=== PATIENT | female | born 1955 | race Caucasian/White ===

== ENCOUNTER 2017-09-24 10:59 | Emergency (ER) | payer SELFPAY ==
--- NOTE | 2017-09-24 11:20 | ER Document Report ---
ED Medical Screen (RME) - General Chief Complaint: Dizziness Stated Complaint: DIZZINESS Time Seen by Provider: 09/24/17 11:11 Mode of Arrival: Ambulatory Information source: Patient Notes: This is a 61-year-old female with a history of hypertension who presents to the emergency room with intermittent weakness and dizziness for the past 2 weeks. Patient did have a history of a fall 1 week ago and did have an outpatient CT scan which was negative. She has had intermittent vertigo symptoms since that period of time. She is a longtime smoker 1 pack per day since the age of 17 TRAVEL OUTSIDE OF THE [place] IN LAST 30 DAYS: No - HPI Onset: Last week Onset/Duration: Gradual Quality of pain: No pain Severity: None Pain Level: Denies Associated Symptoms: Dizzy/lightheaded, Other - Vertigo. denies: Chest pain, Headache, Sinus pain/drainage Exacerbated by: Walking Relieved by: Denies Similar symptoms previously: Yes Recently seen / treated by doctor: Yes - Related Data Smoking: Cigarettes Frequency of alcohol use: Occasional Drug Abuse: None Allergies/Adverse Reactions: No Known Allergies Allergy (Unverified 09/24/17 11:01) Past Medical History - General Information source: Patient - Social History Cigarette use (# per day): Yes - 1-1/2 packs per day Chew tobacco use (# tins/day): No Frequency of alcohol use: None Drug Abuse: Bath salts Lives with: Family Family history: None - Past Medical History Cardiac Medical History: Reports: Hx Hypertension Pulmonary Medical History: Reports: Hx COPD Neurological Medical History: Reports: None Endocrine Medical History: Reports: None Renal/ Medical History: Denies: Hx Peritoneal Dialysis Malignancy Medical History: Reports: None Surgical Hx: Negative Review of Systems - Review of Systems Notes: Review of systems: Constitutional: Denies fever, chills. EENT: Denies ear pain, sinus tenderness, throat pain, throat swelling. Cardiovascular: Denies chest pain, palpitations, dyspnea or edema. Respiratory: Denies wheezing, cough, hemoptysis. Abdomen: Denies abdominal pain, nausea, vomiting, diarrhea. Denies BRBPR or melena. Genitourinary: Denies dysuria, pyuria, hematuria, flank pain. Musculoskeletal: denies joint pain or swelling, denies back pain. Neurologic: See H&P Skin: Denies rash, lesions. Physical Exam - Vital signs Vitals: Temp Pulse Resp BP Pulse Ox 98.4 F 69 16 143/64 H 95 09/24/17 11:06 09/24/17 11:06 09/24/17 11:06 09/24/17 11:06 09/24/17 11:06 Notes: Physical exam: GENERAL: 61-year-old female, alert and oriented 3, no acute distress HEAD: Atraumatic, normocephalic. EYES: Pupils equal round and reactive to light, extraocular movements intact, sclera anicteric, conjunctiva are normal. ENT: TMs normal, nares patent, oropharynx clear without exudates. Moist mucous membranes. NECK: Normal range of motion, supple without obvious mass or JVD. LUNGS: Breath sounds clear to auscultation bilaterally and equal. No wheezes rales or rhonchi. HEART: Regular rate and rhythm without murmurs, rubs or gallops. ABDOMEN: Soft, normoactive bowel sounds. No tenderness to palpation. No guarding, no rebound. No masses appreciated. EXTREMITIES: Normal range of motion, no pitting or edema. No clubbing or cyanosis. NEUROLOGICAL: Cranial nerves II through XII grossly intact. Motor 5/5, sensory grossly intact, cerebellar (finger to nose) good, visual phillips intact in all 4 quadrants, normal sensory bilaterally, normal speech, reflexes symmetrical, Romberg negative. PSYCH: Normal mood, normal affect. SKIN: Warm, Dry, normal turgor, no rashes or lesions noted. Course - Re-evaluation Re-evalutation: 09/24/17 16:08 Note: I had a long discussion with the patient and her sister at the bedside. Patient does have evidence of old strokes. There is nothing acute. I believe that her vertigo is most likely peripheral based upon the MRI findings and her physical exam. However, I did discuss with her the importance of stopping smoking. Additionally, given the MRI, I will put her on a daily aspirin as well as simvastatin. I will refer her to a neurologist and she has asked for a referral to a different primary care doctors which I will provide her with. At the time of discharge, I have instructed the patient at the bedside with regards to return precautions and follow-up recommendations. The opportunity for questions was given. The patient has verbalized understanding of these instructions and the need for follow-up. - Vital Signs Vital signs: Temp Pulse Resp BP Pulse Ox 99.1 F 69 23 H 157/92 H 99 09/24/17 14:37 09/24/17 11:06 09/24/17 14:33 09/24/17 14:33 09/24/17 14:33 - Laboratory Result Diagrams: 09/24/17 11:30 09/24/17 11:30 Laboratory results interpreted by me: 09/24/17 09/24/17 11:30 11:30 RBC 5.38 H Hgb 16.3 H Hct 48.3 H Monocytes % 13.3 H Sodium 134.4 L Chloride 96 L AST 44 H - Diagnostic Test Radiology reviewed: Image reviewed, Reports reviewed - MRI does show evidence of old strokes. Doctor's Discharge - Discharge Clinical Impression: Vertigo Condition: Stable Disposition: HOME, SELF-CARE Instructions: Antinausea Medication ([facility]), Dizziness ([facility]), Meclizine ([facility]), Vertigo ([facility]) Additional Instructions: As we discussed, the MRI does show some very small strokes which are old. I do not believe these are the cause of your vertigo symptoms. MRI was otherwise okay. The chest x-ray showed evidence of emphysema which is not surprising given the amount of your smoking history. The smoking as well as the blood pressure put you at risk of further strokes. I would like you to start taking the simvastatin, baby aspirin a day. I would like you to follow-up with a neurologist: I left the number for one on the chart. I would also like you to follow-up with primary care doctor: Primary Care Doctor's affiliated with [facility]: If you do not have a primary care doctor or you are unable to get an appointment during that time, you can try one of the doctor's below. These are internal medicine doctor's that have admitting priveledges to the hospital ( they will see you both in the office as well as in this hospital if you are ever hospitalized here). Dr. Penny Sousa [address], [place] [address] [phone] Dr Nguyen Address: [address] [place] [address] Dr Griffin Address: [address] [place] [address] Thank you for choosing [facility] for your care. The examination and treatment you have received in the Emergency Department today has been rendered on an emergency basis only and is not intended to be a substitute for complete medical care. You should contact your doctor as it is important that she/he examine you for any new or remaining problems. If given a copy of any lab tests or radiology reports, please bring them with you when you see your physician. If your problem worsens or new symptoms appear and you are unable to arrange prompt follow-up care, return to the Emergency Department. Specific signs to look out for: Worsening dizziness, headache or any concerns or getting worse. Prescriptions: Meclizine HCl 25 mg PO Q8HP PRN #14 tab.chew PRN Reason: Aspirin [Aspirin 81 mg Chewable Tablet] 81 mg PO DAILY #30 tab.chew Simvastatin 10 mg PO DAILY #30 tablet Referrals: ULYSSES BROWN MD [Primary Care Provider] - Follow up as needed TIARRA WYATT MD [ACTIVE STAFF] - Follow up as needed (This is the number for the neurologist: Call for an appointment)
--- NOTE | 2017-09-24 12:04 | RADIOLOGY REPORT (SQ) ---
EXAM DESCRIPTION: CHEST PA/LAT COMPLETED DATE/TIME: 09/24/2017 11:37 am REASON FOR STUDY: weakness COMPARISON: None. EXAM PARAMETERS: NUMBER OF VIEWS: two views TECHNIQUE: Digital Frontal and Lateral radiographic views of the chest acquired. RADIATION DOSE: NA LIMITATIONS: none FINDINGS: LUNGS AND PLEURA: No opacities, masses or pneumothorax. No pleural effusion. MEDIASTINUM AND HILAR STRUCTURES: No masses or contour abnormalities. HEART AND VASCULAR STRUCTURES: Heart normal size. No evidence for failure. BONES: No acute findings. HARDWARE: None in the chest. OTHER: No other significant finding. IMPRESSION: NO SIGNIFICANT RADIOGRAPHIC FINDING IN THE CHEST. TECHNICAL DOCUMENTATION: JOB ID: [id number] [employer]- All Rights Reserved
[2017-09-24 12:06] LABS: ABSOLUTE LYMPHOCYTES (AUTO) 0.8 10^3/uL (0.5-4.7); ABSOLUTE MONOCYTES (AUTO) 0.5 10^3/uL (0.1-1.4); ABSOLUTE NEUT (AUTO) 2.8 10^3/uL (1.7-8.2); BASOPHILS % (AUTO) 0.7 % (0-2); EOSINOPHILS % (AUTO) 0.6 % (0-6); HEMATOCRIT 48.3 % (36.0-47.0); HEMOGLOBIN 16.3 g/dL (12.0-15.5); LYMPHOCYTES % (AUTO) 18.4 % (13-45); MEAN CORPUSCULAR HEMOGLOBIN 30.3 pg (27.0-33.4); MEAN CORPUSCULAR HGB CONC 33.8 g/dL (32.0-36.0); MEAN CORPUSCULAR VOLUME 90 fl (80-97); MONOCYTES % (AUTO) 13.3 % (3-13); PLATELET COUNT 177 10^3/uL (150-450); RED BLOOD COUNT 5.38 10^6/uL (3.72-5.28); RED CELL DISTRIBUTION WIDTH 12.9 % (11.5-14.0); TOTAL CELLS COUNTED % (AUTO) 100 %; WHITE BLOOD COUNT 4.1 10^3/uL (4.0-10.5)
[2017-09-24 12:21] LABS: ALANINE AMINOTRANSFERASE 20 U/L (9-52); ALBUMIN 4.8 g/dL (3.5-5.0); ALKALINE PHOSPHATASE 97 U/L (38-126); ANION GAP 10 (5-19); ASPARTATE AMINO TRANSFERASE 44 U/L (14-36); BILIRUBIN,DIRECT 0.4 mg/dL (0.0-0.4); BILIRUBIN,TOTAL 0.4 mg/dL (0.2-1.3); BLOOD UREA NITROGEN 9 mg/dL (7-20); CALCIUM 9.8 mg/dL (8.4-10.2); CARBON DIOXIDE 28 mmol/L (22-30); CHLORIDE 96 mmol/L (98-107); CREATINE KINASE 58 U/L (30-135); GLUCOSE 98 mg/dL (75-110); MAGNESIUM 1.9 mg/dL (1.6-2.3); POTASSIUM 4.3 mmol/L (3.6-5.0); SODIUM 134.4 mmol/L (137-145); TOTAL PROTEIN 7.6 g/dL (6.3-8.2)
--- NOTE | 2017-09-24 12:29 | RADIOLOGY REPORT (SQ) ---
EXAM DESCRIPTION: MRI HEAD WITHOUT COMPLETED DATE/TIME: 09/24/2017 12:18 pm REASON FOR STUDY: vertigo COMPARISON: None. TECHNIQUE: Multiplanar imaging includes non-contrasted T1, T2, FLAIR, and diffusion with ADC map seq uences. Images stored on PACS. LIMITATIONS: None. FINDINGS: ANATOMY: No anomalies. Normal vascular flow voids. Pituitary fossa normal. CSF SPACES: Normal in size and contour. No hemorrhage. CEREBRUM: Sulci and gyri normal in size and contour. Old watershed infarcts left frontal and right p arietal low. No evidence of hemorrhage, mass, or extraaxial fluid collection. POSTERIOR FOSSA: No signal alteration. No hemorrhage. No edema, masses or mass effect. Internal arron tory canals, cerebello-pontine angles, mastoids normal. DIFFUSION IMAGING: Negative for acute or sub-acute infarction. ORBITS: No masses. Globes normal. PARANASAL SINUSES: No fluid levels. Mucosa normal. OTHER: No other significant finding. IMPRESSION: Old infarcts. No acute findings. EVIDENCE OF ACUTE STROKE: NO. TECHNICAL DOCUMENTATION: JOB ID: [id number] [employer]- All Rights Reserved
[2017-09-24 12:32] LABS: CREATINE KINASE MB 0.46 ng/mL (<4.55)
[2017-09-24 12:34] LABS: TROPONIN I < 0.012 ng/mL
[2017-09-24 13:15] LABS: FREE T3 3.2 pg/mL (2.77-5.27); FREE T4 (FREE THYROXINE) 1.01 ng/dL (0.78-2.19)
[2017-09-24 13:28] LABS: THYROID STIMULATING HORMONE 4.04 uIU/mL (0.47-4.68)
[2017-09-24 14:36] VITALS: BP 157/92
== END 2017-09-24 14:36 | disposition home or self-care (01) ==
LOC: ER 10:59
DX: R42 Dizziness and giddiness (principal); R53.1 Weakness; W19.XXXD Unspecified fall, subsequent encounter; F17.210 Nicotine dependence, cigarettes, uncomplicated
CPT/HCPCS: 36415; 70551; 71046; 80053; 82550; 82553; 83735; 84439; 84443; 84481; 84484; 85025; 99285

== ENCOUNTER 2019-05-17 17:43 | Emergency (ER) | payer SELFPAY ==
[~2019-05-17 17:43] MED LIST: ETOMIDATE INJ/PF 20 MG/10 ML SDV IV ONE
[2019-05-17] MEDS ORDERED: GLUCAGON,HUMAN RECOMB 1 MG INJ ONE ×4 (17:45→22:57)
[2019-05-17] MEDS ORDERED: MIDAZOLAM HCL 50 MG/100 ML RTUINJ ONE (17:59)
[2019-05-17] MEDS ORDERED: FENTANYL CITRATE INJ/PF 100 MCG/2 ML AMPUL ONE (18:03)
[2019-05-17] MEDS ORDERED: FENTANYL CITRATE INJ/PF 100 MCG/2 ML AMPUL IV ONE (18:03)
--- NOTE | 2019-05-17 18:51 | RADIOLOGY REPORT (SQ) ---
EXAM DESCRIPTION: CHEST SINGLE VIEW COMPLETED DATE/TIME: 05/17/2019 6:39 pm REASON FOR STUDY: mp s/p intubation COMPARISON: 09/24/2017 NUMBER OF VIEWS: One view. TECHNIQUE: Single frontal radiographic view of the chest acquired. LIMITATIONS: Overlying support devices. FINDINGS: LUNGS AND PLEURA: Endotracheal tube and NG tube are in place. Both 0 appear to be in sati sfactory position. Endotracheal tube lies 1.8 cm above the tashi. Tip of the NG tube is not seen b ut is well below the GE junction. Lung phillips are expanded and free of infiltrate. No pneumothorax. MEDIASTINUM AND HILAR STRUCTURES: No masses. Contour normal. HEART AND VASCULAR STRUCTURES: Heart normal in size. Normal vasculature. BONES: No acute findings. HARDWARE: None in the chest. OTHER: No other significant finding. IMPRESSION: Support lines and tubes are in satisfactory position. Lung phillips are grossly clear. TECHNICAL DOCUMENTATION: JOB ID: [id number] [employer]- All Rights Reserved Reading location - IP/workstation name: [email or web address]
[2019-05-17 18:52] LABS: ABSOLUTE BASOPHILS # (AUTO) 0.1 10^3/uL (0.0-0.2); ABSOLUTE EOSINOPHILS # (AUTO) 0.1 10^3/uL (0.0-0.6); ABSOLUTE LYMPHOCYTES (AUTO) 2.3 10^3/uL (0.5-4.7); ABSOLUTE MONOCYTES (AUTO) 0.5 10^3/uL (0.1-1.4); ABSOLUTE NEUT (AUTO) 10.2 10^3/uL (1.7-8.2); BASOPHILS % (AUTO) 0.9 % (0-2); EOSINOPHILS % (AUTO) 0.4 % (0-6); HEMATOCRIT 39.2 % (36.0-47.0); HEMOGLOBIN 12.8 g/dL (12.0-15.5); LYMPHOCYTES % (AUTO) 17.1 % (13-45); MEAN CORPUSCULAR HEMOGLOBIN 29.3 pg (27.0-33.4); MEAN CORPUSCULAR HGB CONC 32.7 g/dL (32.0-36.0); MEAN CORPUSCULAR VOLUME 90 fl (80-97); MONOCYTES % (AUTO) 3.7 % (3-13); PLATELET COUNT 240 10^3/uL (150-450); PROTHROMBIN TIME 13.2 SEC (11.4-15.4); RED BLOOD COUNT 4.37 10^6/uL (3.72-5.28); RED CELL DISTRIBUTION WIDTH 12.8 % (11.5-14.0); SEGMENTED NEUTROPHILS % (AUTO) 77.9 % (42-78); TOTAL CELLS COUNTED % (AUTO) 100 %; WHITE BLOOD COUNT 13.1 10^3/uL (4.0-10.5)
[2019-05-17] MEDS ORDERED: EPINEPHRINE INJ/PF 1 MG/1 ML AMPULE ONE ×3 (18:59→22:33)
[2019-05-17 19:02] LABS: VENOUS BLOOD BASE EXCESS -8.9 mmol/L; VENOUS BLOOD HCO3 21.9 mmol/L (20-32)
[2019-05-17 19:07] LABS: VENOUS BLOOD PCO2 66.3 mmHg (35-63); VENOUS BLOOD PH 7.14 (7.30-7.42)
[2019-05-17 19:23] LABS: ALBUMIN 3.6 g/dL (3.5-5.0); ALKALINE PHOSPHATASE 71 U/L (38-126); ANION GAP 9 (5-19); ASPARTATE AMINO TRANSFERASE 36 U/L (14-36); BILIRUBIN,DIRECT 0.1 mg/dL (0.0-0.4); BILIRUBIN,TOTAL 0.4 mg/dL (0.2-1.3); BLOOD UREA NITROGEN 16 mg/dL (7-20); CALCIUM 8.1 mg/dL (8.4-10.2); CARBON DIOXIDE 24 mmol/L (22-30); CHLORIDE 105 mmol/L (98-107); CREATINE KINASE 31 U/L (30-135); GLUCOSE 172 mg/dL (75-110); POTASSIUM 4.3 mmol/L (3.6-5.0); TOTAL PROTEIN 6.4 g/dL (6.3-8.2)
[2019-05-17] MEDS: EPINEPHRINE INJ 1 MG/10 ML DISP.SYRIN IV PRN ×7 (19:30→20:28)
[2019-05-17] MEDS ORDERED: NALOXONE HCL INJ/PF 0.4 MG/1 ML SDV IV ONE (19:36)
[2019-05-17 19:40] LABS: CREATINE KINASE MB 0.33 ng/mL (<4.55)
[2019-05-17 19:41] LABS: TROPONIN I < 0.012 ng/mL
[2019-05-17] MEDS ORDERED: EPINEPHRINE INJ 1 MG/10 ML DISP.SYRIN ONE ×4 (19:49→22:00)
--- NOTE | 2019-05-17 20:02 | RADIOLOGY REPORT (SQ) ---
EXAM DESCRIPTION: CT HEAD WITHOUT COMPLETED DATE/TIME: 05/17/2019 7:50 pm REASON FOR STUDY: AMS COMPARISON: MR 09/24/2017 TECHNIQUE: Axial images acquired through the brain without intravenous contrast. Images reviewed wi th bone, brain and subdural windows. Additional sagittal and coronal reconstructions were generated. Images stored on PACS. All CT scanners at this facility use dose modulation, iterative reconstruction, and/or weight based d osing when appropriate to reduce radiation dose to as low as reasonably achievable (ALARA). [facility]: Dose Right [facility]: CareDose [facility]: Dose Right [facility]: Teradose 4D [facility]: Smart Technologies RADIATION DOSE: CT Rad equipment meets quality standard of care and radiation dose reduction techniq ues were employed. CTDIvol: 53.2 mGy. DLP: 1097 mGy-cm. mGy. LIMITATIONS: None. FINDINGS: VENTRICLES: Normal size and contour. CEREBRUM: No masses. No hemorrhage. No midline shift. Small old left frontal infarction. No evide nce for acute infarction. Normal guthrie/white matter differentiation. No areas of low density in the wh ite matter. CEREBELLUM: No masses. No hemorrhage. No alteration of density. No evidence for acute infarction. EXTRAAXIAL SPACES: No fluid collections. No masses. ORBITS AND GLOBE: No intra- or extraconal masses. Normal contour of globe without masses. CALVARIUM: No fracture. PARANASAL SINUSES: No fluid or mucosal thickening. SOFT TISSUES: No mass or hematoma. OTHER: No other significant finding. IMPRESSION: Old left frontal infarction with no acute intracranial imaging findings. EVIDENCE OF ACUTE STROKE: NO. COMMENT: Quality ID # [id number]: Final reports with documentation of one or more dose reduction techniques (e.g., Automated exposure control, adjustment of the mA and/or kV according to patient size, use of iterative reconstruction technique) TECHNICAL DOCUMENTATION: JOB ID: [id number] [employer]- All Rights Reserved Reading location - IP/workstation name: [email or web address]
[2019-05-17 20:19] LABS: ACETAMINOPHEN < 10 ug/mL (10-30); ALCOHOL < 10 mg/dL (NONE DETECTED); DIGOXIN < 0.40 ng/mL (0.8-2.0); SALICYLATE < 1.0 mg/dL (2.0-20.0)
[2019-05-17] MEDS ORDERED: INSULIN REG, HUMAN 100 UNIT/ML 3 ML VIAL (PYX) IV ONE ×2 (20:58→22:53)
[2019-05-17] MEDS ORDERED: SODIUM BICARBONATE 8.4% INJ 50 MEQ/50 ML DISP.SYRIN IV ONE (21:06)
[2019-05-17] MEDS ORDERED: SODIUM BICARBONATE 8.4% INJ 50 MEQ/50 ML DISP.SYRIN ONE (21:06)
[2019-05-17] MEDS ORDERED: CALCIUM GLUCONATE 1000 MG/10 ML INJ IV ONE ×2 (22:00→22:46)
[2019-05-17] MEDS ORDERED: DOPAMINE HCL/DEXTROSE 5%-WATER 800 MG/250 ML RTUINJ IV ONE (22:23)
[2019-05-17] MEDS ORDERED: NOREPINEPHRINE BITARTRATE INJ/PF 4 MG/4 ML SDV IV ONE (22:23)
[2019-05-17] MEDS ORDERED: DEXTROSE 5%-WATER 250 ML with NOREPINEPHRINE BITARTRATE 4 MG IV PRN ×2 (22:33)
--- NOTE | 2019-05-17 22:45 | Operative Report ---
Bedside Procedure - History of Present Illness Indication for Procedure: severe bradycardia Date: 05/17/19 - Blood Loss estimate: 10 ml Surgeon: ARDEN FUNK - Central Line Right Internal jugular Time completed: 21:00 Consent obtained: Yes - Verbal from Sister. Emergent Central line pre-insertion: Sterile PPE donned, Chloraprep applied, Sterile drapes applied Central line size (Fr.): 8 Central line lumen type: Cordis/Introducer Ultrasound guided: Yes CM at insertion site: 15 Line secured with sutures: Yes Central line post-insertion: Blood return from lumens, Sutured, Sterile dressing applied, Other - wire seen on ultrasound. For urgent pacmaker placement Number of attempts: 1 Complications: No Notes: 05/17/19 22:[address] pacemaker once line was placed. Pacemaker set at 70, mA @ 20 with high sensitivity. Capture occured at approximately 20 cm but could not be maintained. Multiple attempts with varying degree of sensitivity attempted. Would obtain capture but would not persist and decayed. After multiple capture which would not remain stable, procedure was aborted. Supplied transcutaneous pacemaker during non-capture events.
--- NOTE | 2019-05-17 22:51 | Progress Note ---
Provider Note Provider Note: Care procedure Right femoral arterial artery cannulation and catheter placement Proceduralist: Aniket ED nursing staff Preop diagnosis hypotension cardiogenic shock, post procedure diagnosis same Lillian blood loss 10 cc Attentive equipment critical care ultrasound for seizure patient was appropriate identified secondary to ongoing critical care. She was hypotensive and required trans-cutaneous pacemaker. In preparation for transport and because of hypotension and art line was placed. Because there was difficulty with peripheral radial pulses the right femoral shows a site of access with ultrasound. Using ultrasound guidance a Seldinger needle was placed in the right femoral artery. On the third attempt. 2 first 2 times were without ultrasound guidance. Arterial blood flow was noted and a wire was placed without difficulty. After this the needle was removed and a 20-gauge long catheter was placed without difficulty. The wire was removed in place at bedside. Catheter the ABG was drawn with a sterile syringe. The catheter was then sutured in place attached transducer tubing was affixed patient had biphasic waveform but was extremely hypotensive with a blood pressure of 44/30. Levophed was ordered as well as dopamine.
[2019-05-17] MEDS ORDERED: GLUCAGON,HUMAN RECOMB 1 MG INJ IV ONE (23:00)
--- NOTE | 2019-05-17 23:08 | PDOC CONSULTATION ---
Consultation Consult Date: 05/17/19 Attending physician:: ED Provider Consulted: ARDEN FUNK Consult reason:: Severe bradycardia. Possible Beta Timothy overdose History of Present Illness History of Present Illness: MARIO ALCALA is a 63 year old female Past Medical History Medical History: Other - Unknown. Patient intubated. Family states she does not see medical providers Cardiac Medical History: Reports: None, Hypertension Pulmonary Medical History: Reports: Chronic Obstructive Pulmonary Disease (COPD) Past Surgical History Past Surgical History: Reports: Other - Unknown Social History Information Source: Friend Lives with: Family Smoking Status: Current Every Day Smoker Frequency of Alcohol Use: Heavy Last Alcohol Use: 05/15/19 Hx Recreational Drug Use: No Drugs: None Family History Family History: None Parental Family History Reviewed: No Children Family History Reviewed: No Sibling(s) Family History Reviewed.: No Medication/Allergy Allergies/Adverse Reactions: No Known Allergies Allergy (Unverified 09/24/17 11:01) Physical Exam Vital Signs: Temp Pulse Resp BP Pulse Ox 95 F L 67 14 96/61 L 98 05/17/19 20:11 05/17/19 20:11 05/17/19 22:00 05/17/19 21:57 05/17/19 22:00 Intake & Output 05/16/19 05/17/19 05/18/19 06:59 06:59 06:59 Weight 86.3 kg Physical Exam: Intubated toxic 63-year-old female unresponsive fixed and dilated pupils General appearance: PRESENT: morbidly obese Head exam: PRESENT: atraumatic, normocephalic Eye exam: PRESENT: conjunctiva pink, other - Pupils fixed and dilated. Did receive Atropine. ABSENT: conjunctival injection Neck exam: ABSENT: carotid bruit, JVD, meningismus, thyromegaly, tracheal deviation Respiratory exam: PRESENT: clear to auscultation loreta Cardiovascular exam: PRESENT: other - Asystole of pacemaker Neurological exam: PRESENT: altered, other - Coma. GCS 3T Skin exam: PRESENT: pallor. ABSENT: jaundice, urticaria, vesicles Results Laboratory Results: 05/17/19 18:00 05/17/19 18:00 05/17/19 05/17/19 05/17/19 18:00 18:00 18:00 WBC 13.1 H RBC 4.37 Hgb 12.8 Hct 39.2 MCV 90 MCH 29.3 MCHC 32.7 RDW 12.8 Plt Count 240 Seg Neutrophils % 77.9 VBG pH VBG pCO2 VBG HCO3 VBG Base Excess Sodium 137.7 Potassium 4.3 Chloride 105 Carbon Dioxide 24 Anion Gap 9 BUN 16 Creatinine 1.20 Est GFR ( Amer) 55 L Glucose 172 H Lactic Acid 2.4 H Calcium 8.1 L Total Bilirubin 0.4 AST 36 Alkaline Phosphatase 71 Total Protein 6.4 Albumin 3.6 TSH 05/17/19 05/17/19 18:00 18:00 WBC RBC Hgb Hct MCV MCH MCHC RDW Plt Count Seg Neutrophils % VBG pH 7.14 L* VBG pCO2 66.3 H* VBG HCO3 21.9 VBG Base Excess -8.9 Sodium Potassium Chloride Carbon Dioxide Anion Gap BUN Creatinine Est GFR ( Amer) Glucose Lactic Acid Calcium Total Bilirubin AST Alkaline Phosphatase Total Protein Albumin TSH 9.07 H 05/17/19 05/17/19 18:00 18:00 Creatine Kinase 31 CK-MB (CK-2) 0.33 Troponin I < 0.012 Impressions: Chest X-Ray 05/17/19 00:00 IMPRESSION: Support lines and tubes are in satisfactory position. Lung phillips are grossly clear. Head CT 05/17/19 18:19 IMPRESSION: Old left frontal infarction with no acute intracranial imaging findings. EVIDENCE OF ACUTE STROKE: NO. Assessment & Plan - Diagnosis (1) Coma Qualifiers: Coma depth: Korina coma 3-8 Coma timing: unspecified coma timing Qualified Code(s): R40.2430 - Korina coma scale score 3-8, unspecified time Is this a current diagnosis for this admission?: Yes - Time Time Spent: Greater than 70 Minutes Total Critical Time (Minutes): 90 Medications reviewed and adjusted accordingly: Yes Anticipated discharge: [facility] - Inpatient Certification Based on my medical assessment, after consideration of the patient's comorbidities, presenting symptoms, or acuity I expect that the services needed warrant INPATIENT care.: Yes I certify that my determination is in accordance with my understanding of Medicare's requirements for reasonable and necessary INPATIENT services [42 CFR 412.3e].: Yes Medical Necessity: Need Close Monitoring Due to Risk of Patient Decompensation, Need for Neurological Checks - Plan Summary Plan Summary: I was called by the ED staff to assist with patient with severe bradycardia now pacemaker dependent. There was question that the patient had taken a beta- timothy overdose however reports from family members say that this was not possible. There were empty bottles found at her place but this was because the patient helped her sister with her medications. She presented via EMS altered with intact respiratory drive but altered mental status. She decompensated while emergency room. She required epi and glucagon which had transient effect. Eventually she transition to complete requirement for transcutaneous pacemaking. We attempted to place a trans-venous pacemaker in the emergency room under sterile conditions. The pacemaker was able to capture however the capture was transient and would not persist. Multiple attempts with changing a sensitivity were done to no avail. During the procedure in order to maintain a positive cardiac output the transcutaneous pacemaker was maintained and decrease momentarily to 30 during the placement of the transvenous pacemaker. It did not interfere with the initial capture and was turned off when capture was complete. At this point I am concerned about a number of things: Patient may have had a beta-timothy overdose and will require intensive insulin and glucose therapy as well as the need for a transient venous pacemaker. Since we are unable to have capture and do not have capabilities I have spoken to the supervisor water treatment plant at light into it already been called by the ED staff. Patient also has fixed and dilated pupils. CT scan does not show edema but I am concerned that she is progressing to this. Also concerned that she has unrecognized hypotension and an A-line was placed which confirmed this. With his hypotension and need for pacemaker this represents a form of cardiogenic shock. I asked for calcium calcium supplementation and this was given. Also in addition to epinephrine started levophed in the past for dopamine because of the bradycardia. She is to be transferred to tertiary care center. She also has significant alcohol use and has not been feeling well for the last 2 days. This may represent a form of nonconvulsive status and or post seizure. Her initial VBG showed an elevated PCO2 which may represent hypercarbia as an i nciting event. Because of her significant alcohol use I asked for 500 mg of thiamine to be given stat. Total critical care time 90 minutes
[2019-05-17 23:50] VITALS: BP 110/21
--- NOTE | 2019-05-18 03:32 | ER Document Report ---
Entered by AILNA MAHAN SCRIBE 05/17/19 1808 Acting as scribe for:CANDELARIA MCKINNEY DO ED General - General Stated Complaint: UNRESPONSIVE Time Seen by Provider: 05/17/19 18:00 Mode of Arrival: Medic Information source: Emergency Med Personnel Cannot obtain history due to: Unstable vital signs, Altered mental status Notes: Patient is a 63-year-old female who presents today after being found unresponsive by her sister for an unknown amount of time. EMS reports that the patient normally wakes up at about 5 PM and when her sister had realized it was past 5 PM and she had still not seen her she went into check on her and found her unresponsive. EMS states that when they arrived the patient was unresponsive in her bed, bradycardic in the 30s with a blood pressure of 80s/50s with agonal respirations. EMS adminstered atropine with no change and 2 push doses of epi which brought the patient's heart rate into the 70s. EMS assisted ventilations with a [id number] while in route here. EMS states that as they were pulling in to the parking lot, the patient began to taqueria back back down again. TRAVEL OUTSIDE OF THE [place] IN LAST 30 DAYS: No - Related Data Allergies/Adverse Reactions: No Known Allergies Allergy (Unverified 09/24/17 11:01) Past Medical History - General Information source: Emergency Med Personnel, [facility] Records Cannot obtain history due to: Unstable vital signs, Altered mental status - Social History Smoking Status: Unknown if Ever Smoked Family History: Other - Past Medical History Cardiac Medical History: Reports: Hx Hypertension Pulmonary Medical History: Reports: Hx COPD Review of Systems - Review of Systems -: Yes ROS unobtainable due to patient's medical condition Physical Exam - Vital signs Vitals: Pulse Ox 97 05/17/19 17:44 Interpretation: Hypotensive, Bradycardic, Hypoxic - General General appearance: Unresponsive In distress: Severe - HEENT Head: Normocephalic, Atraumatic Pupils: Dilated - Received atropine - Respiratory Respiratory status: Cyanosis Chest status: Nontender Breath sounds: Normal Chest palpation: Normal - Cardiovascular Rhythm: Bradycardia - Abdominal Distension: Distended - Extremities General upper extremity: No: Normal ROM General lower extremity: No: Normal ROM - Neurological Korina Coma Scale Eye Opening: None [place] Coma Scale Verbal: None [place] Coma Scale Motor: None [place] Coma Scale Total: 3 - Skin Skin Temperature: Cool Skin Color: Cyanotic Course - Re-evaluation Re-evalutation: 05/17/19 18:09 Patient is hypotensive with a heart rate ranging between 53-56, 1 mg of epi ordered. 05/17/19 18:11 1mg of epi given 23:00 Patient medically stable for transport. Patient is a 63-year-old female whose past medical history was obtained from visit of September of last year. 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 She had been given a statin and aspirin. There was some question about patient taking Coreg and lisinopril although this was not prescribed for her. No known history of depression or suicidal ideation. Patient was brought in by EMS for being unresponsive. Found down by family or neighbor. Patient arrived with bradycardia, hypotension, and cyanosis. No response. Pupils dilated but received atropine prior to arrival. Patient was intubated and had a gag reflex but minimal. Edematous oropharynx. Difficult intubation. Patient was given epinephrine which brought up heart rate and stabilize blood pressure. Patient was given multiple rounds of epinephrine for bradycardia. Please see procedure note. Started on epinephrine drip. Consult to poison control considered beta-cornelius overdose. Glucagon given but seem to have less and less artifact. Considered high-dose insulin; however, trying to get patient stabilized to do CT to evaluate for neurologic catastrophe. CT head with no acute findings. Patient was discussed with hospitalist at [facility] due to concerns for possibility of needing pacemake r. Patient had been capturing initially with transcutaneous pacemaker but then was having decreased capturing and possibility that she was not truly capturing. In the meantime, ICU physician here came down to evaluate patient and place transvenous pacemaker, hoping to be able to stabilize the patient and keep her here. However, transvenous pacemaker would also not capture. Art line established. Please see nursing notes for times and management. Patient will be transported via air to [facility] in guarded condition. - Vital Signs Vital signs: Temp Pulse Resp BP Pulse Ox 95 F L 67 15 110/21 L 94 05/17/19 20:11 05/17/19 20:11 05/17/19 22:46 05/17/19 22:46 05/17/19 22:46 - Laboratory Result Diagrams: 05/17/19 18:00 05/17/19 18:00 Laboratory results interpreted by me: 05/17/19 05/17/19 05/17/19 18:00 18:00 18:00 WBC 13.1 H Absolute Neuts (auto) 10.2 H VBG pH VBG pCO2 Est GFR ( Amer) 55 L Est GFR (MDRD) Non-Af 46 L Glucose 172 H POC Glucose Lactic Acid 2.4 H Calcium 8.1 L TSH Digoxin Salicylates Acetaminophen 05/17/19 05/17/19 05/17/19 18:00 18:00 18:00 WBC Absolute Neuts (auto) VBG pH 7.14 L* VBG pCO2 66.3 H* Est GFR ( Amer) Est GFR (MDRD) Non-Af Glucose POC Glucose Lactic Acid Calcium TSH 9.07 H Digoxin < 0.40 L Salicylates < 1.0 L Acetaminophen < 10 L 05/17/19 05/17/19 05/17/19 18:49 20:32 22:43 WBC Absolute Neuts (auto) VBG pH VBG pCO2 Est GFR ( Amer) Est GFR (MDRD) Non-Af Glucose POC Glucose 300 H 477 H* 343 H Lactic Acid Calcium TSH Digoxin Salicylates Acetaminophen 05/17/19 23:01 WBC Absolute Neuts (auto) VBG pH VBG pCO2 Est GFR ( Amer) Est GFR (MDRD) Non-Af Glucose POC Glucose 311 H Lactic Acid Calcium TSH Digoxin Salicylates Acetaminophen Procedures - Intubation Orotracheal Airway evaluation: Large tongue Mallampati Classification: Class 4 Intubation method: Orotracheal Blade size: 4 Equipment used: Glidescope ETT size: 7.5 ETT secured at: Teeth Breath Sounds after Intubation: Equal End tidal CO2 confirmed: Yes Post Intubation Xray: Yes - Tube dislodged. Advanced and repeat x-ray with good placement Intubation Complications: No complications Critical Care Note - Critical Care Note Total time excluding time spent on procedures (mins): 180 Discharge - Discharge Clinical Impression: Bradycardia with less than 30 beats per minute, Shock circulatory Coma Qualifiers: Coma depth: [place] coma 3-8 Coma timing: unspecified coma timing Qualified Code(s): R40.2430 - Korina coma scale score 3-8, unspecified time Respiratory failure with hypoxia and hypercapnia Qualifiers: Chronicity: acute Qualified Code(s): J96.01 - Acute respiratory failure with hypoxia; J96.02 - Acute respiratory failure with hypercapnia Condition: Fair Disposition: [facility] I personally performed the services described in the documentation, reviewed and edited the documentation which was dictated to the scribe in my presence, and it accurately records my words and actions.
--- NOTE | 2019-05-18 07:34 | EKG REPORT ---
SEVERITY:- ABNORMAL ECG - SINUS BRADYCARDIA WITH FIRST DEGREE AVB RHYTHM CONSIDER ANTEROSEPTAL INFARCT NONSPECIFIC T ABNORMALITIES, ANT-LAT LEADS : Confirmed by: Ponce Robles MD 18-May-2019 07:33:33
--- NOTE | 2019-05-18 07:34 | EKG REPORT ---
SEVERITY:- ABNORMAL ECG - SINUS RHYTHM FIRST DEGREE AV BLOCK ABNORMAL T, CONSIDER ISCHEMIA, LATERAL LEADS : Confirmed by: Ponce Robles MD 18-May-2019 07:33:56
== END 2019-05-17 23:30 | disposition short-term general hospital (02) ==
LOC: ER 17:43
DX: J96.01 Acute respiratory failure with hypoxia (principal); R00.0 Tachycardia, unspecified; R57.9 Shock, unspecified; R40.2430 Glasgow coma scale score 3-8, unspecified time; I95.9 Hypotension, unspecified; I10 Essential (primary) hypertension
CPT/HCPCS: 93005; 36415; 87040; 82553; 82962; 80307 ×3; 82550; 80162; 84600; 84443; 85025; 85610; 82693; 80053; 84484; 82803; 83605; 71045; 70450; 94660; 93010; J0610; J1265; J0171; J3010; J1610; J2310; J3490 ×2; J1815; J7060; 87077; 94002; 96365; 96375; 96376; 99291; 99292; C1894